=== PATIENT | female | born 2000 | race Caucasian/White ===

== ENCOUNTER 2021-07-11 17:01 | Emergency (ER) | payer OTHER, SELFPAY ==
[2021-07-11 17:11] LABS: Urine Blood Negative (Negative); Urine Glucose Negative (Negative); Urine Protein Negative (Negative); Urine Specific Gravity 1.025 (1.005-1.030)
[2021-07-11 17:29] LABS: Urine Specific Gravity/Preg 1.025 (1.005-1.030)
[2021-07-11 17:31] LABS: Absolute Lymphocytes (CBC) 3.2 K/uL (0.7-4.9); Hematocrit 43.5 % (36.0-45.0); Lymphocytes % 28.8 % (15.3-44.8); MPV 8.1 fL (7.6-11.3); RBC Red Blood Cell Count 4.75 M/uL (3.86-4.86)
[2021-07-11 17:32] LABS: Protime INR 0.99
[2021-07-11 17:47] LABS: BUN Blood Urea Nitrogen 15 mg/dL (7-18); Bicarbonate 27 mmol/L (21-32); Glucose Level 88 mg/dL (74-106); Potassium 3.2 mmol/L (3.5-5.1); Sodium Level 141 mmol/L (136-145)
[2021-07-11] MEDS ORDERED: FENTANYL CITR 100 MCG/2 ML ONE (18:16)
[2021-07-11] MEDS ORDERED: CYCLOBENZAPRINE 10 MG TAB ONE (19:22)
[2021-07-11] MEDS ORDERED: KETOROLAC 30 MG/ML INJ ONE (19:22)
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
[2021-07-11 22:56] VITALS: BP 128/76; TEMP 97.4; O2SAT 100
== END 2021-07-11 20:46 | disposition home or self-care (01) ==
LOC: ER 17:01
DX: M54.2 Cervicalgia (principal); V43.62XA Car passenger injured in collision with other type car in traffic accident, initial encounter; Y93.89 Activity, other specified; Y92.410 Unspecified street and highway as the place of occurrence of the external cause; Z88.6 Allergy status to analgesic agent; F17.210 Nicotine dependence, cigarettes, uncomplicated
CPT/HCPCS: 85025; 80048; 36415; 86900; 86850; 81025; 85610; 82565; 86901; 81003; 70450; 72125; 71260; 74177; 99283; Q9967; J3010; 93005

== ENCOUNTER 2021-08-16 12:25 | Emergency (ER) | payer SELFPAY ==
--- OUTSIDE RECORDS SUMMARY | 2021-08-16 12:30 | XMS REPORT | Continuity of Care Document ---
:2000 Author Organization [facility] t Address [address] [place] [address] Care Team Providers Name Role Phone Rylie Gil Attending Clinician Rylie MCKEON Attending Clinician Unavailable Saundra KNIGHT Attending Clinician SAUNDRA Attending Clinician Unavailable KNOW Admitting Clinician Unavailable Payers Payer Name Policy Type Policy Number Effective Date Expiration Date [facility] P [id number] Problems Condition Condition Condition Status Onset Resolution Last Treating Co mments Source Name Details Category Date Date Treatment Clinician Date No known No known Disease Unive rs active active ity of problems problems [facility] Allergies, Adverse Reactions, Alerts Allergy Allergy Status Severity Reaction(s) Onset Inactive Treating Comm ents Source Name Type Date Date Clinician Morphine Propensi Active Nausea 2019-06 Univer s ty to and/or 2-14 ity of adverse Vomiting 00:00: [place] reaction 00 Medical s Branch MORPHINE DRUG Active N/V 2019-06 Univers INGREDI 2-14 ity of 00:00: [place] 00 [facility] succinyl DA Active SV [facility] choline 5-16 [place] 00:00: d 00 [facility] succinyl DA Active SV UNKNOWN [facility] choline 5-16 [place] 00:00: d 00 [facility] Social History Social Habit Start Date Stop Date Quantity Comments Source Exposure to Not sure [facility] SARS-CoV-2 (event) Medica l Branch Sex Assigned At [birth year] [facility] 00:00:00 00:00:00 Medical Branch Smoking Status Start Date Stop Date Source Unknown if ever smoked [facility] Medications Ordered Filled Start Stop Current Ordering Indication Dosage Frequency Signature Comments Components Source Medication Medication Date Date Medication? Clinician (SIG) Name Name ondansetron No 4mg 4 mg, Slow Univers (ZOFRAN 6-05 02- IV Push, ity of (PF)) 15:30: 14:53 ONCE, 1 [place] injection 4 00 :00 dose, Fri Med ical mg 12/05/20 at Branch 1030, ANGEL ondansetron Yes [id number] 4mg Take 1 U nivers 4 mg 6- tablet by ity of disintegrat 00:00: mouth [place] ing tablet 00 every 8 Medica l (eight) Branch hours as needed for Nausea and Vomiting (N/V). iohexol 2019-06 2020- No 100mL 100 mL, Unive rs (OMNIPAQUE 2-14 -14 Intravenou it y of 350 17:00: 16:50 s, ONCE, 1 [place] BULK-100 00 :00 dose, Mon Medica l mL) 06/09/20 Branch injection at 1100, 100 mL Routine No known No Univers medications [facility] Vital Signs Vital Name Observation Time Observation Value Comments Source Systolic blood 2020-12-05 17:20:00 114 mm[Hg] [facility] Diastolic blood 2020-12-05 17:20:00 62 mm[Hg] Unive rs[facility] Heart rate 2020-12-05 17:20:00 78 /min [facility] Respiratory rate 2020-12-05 17:20:00 18 /min [facility] Oxygen saturation in 2020-12-05 17:20:00 98 /min [facility] Arterial blood by [facility] Pulse oximetry Branch Body temperature 2020-12-05 13:59:00 36.72 Linda [facility] Body height 2020-12-05 13:59:00 160 cm Universi ty of [facility] Body weight 2020-12-05 13:59:00 65.772 kg Universi ty [facility] BMI 2020-12-05 13:59:00 25.69 kg/m2 Universi ty [facility] Diastolic blood 2020-06-09 18:17:12 59 mm[Hg] [facility] Heart rate 2020-06-09 18:17:12 73 /min Universi ty [facility] Body temperature 2020-06-09 18:17:12 36.89 [facility] Respiratory rate 2020-06-09 18:17:12 16 /min [facility] Oxygen saturation in 2020-06-09 18:17:12 98 /min [facility] Arterial blood by [facility] Pulse oximetry Branch Systolic blood 2020-06-09 18:17:12 117 mm[Hg] Univer sit of pressure [facility] Body height 2020-06-09 15:20:[address] [facility] [place] Body weight 2020-06-09 15:20:00 65.318 kg Universi [facility] BMI 2020-06-09 15:20:00 24.72 kg/m2 [facility] Procedures Procedure Date / Time Performed Performing Clinician Rigoberto e CT ABDOMEN PELVIS WO 2020-12-05 14:50:57 Iris Mckeon Uni [facility] CONTRAST [facility] COVID-19 (ID NOW RAPID 2020-12-05 14:50:00 [facility] Medical Branch LIPASE 2020-12-05 14:33:00 Iris Mckeon [facility] COMP. METABOLIC PANEL 2020-12-05 14:33:00 [id number] Medical Branch CBC WITH DIFF 2020-12-05 14:33:00 Iris Mckeon [facility] URINALYSIS 2020-12-05 14:33:00 Iris Mckeon [facility] POCT TEST 2020-12-05 14:25:00 Iris Mckeon [facility] CONSENT/REFUSAL FOR 2020-12-05 13:55:26 Doctor Unassigned, No Un [facility] DIAGNOSIS AND Name Medical Branch TREATMENT CT ABDOMEN PELVIS W 2020-06-09 16:58:03 Keke Armas [facility] CONTRAST [facility] US OVARY TORSION 2020-06-09 16:36:54 Saundra [facility] LIPASE 2020-06-09 15:51:00 Saundra [facility] TEST, SERUM 2020-06-09 [facility]:51[facility] 2020-06-09 15:51:00 Keke Armas [facility] ([id number]) [facility] (ALB,T.PRO,BILI T,BU/BC,ALT,AST,ALK PHOS) BASIC METABOLIC PANEL 2020-06-09 15:51:00 Saundra [facility] (NA, K, CL, CO2, Medical Branch GLUCOSE, BUN, CREATININE, CA) CBC WITH DIFF 2020-06-09 15:51:00 Saundra [facility] URINALYSIS 2020-06-09 15:51:00 Saundra [facility] Encounters Start End Encounter Admission Attending Care Care Encounter Source Date/Time Date/Time Type Type Clinicians Facility Department ID 2021-04-09 Outpatient [facility] [id number] [facility] 16:46:14 [id number] [facility] 2020-04-25 Inpatient HCAMN KATELYN [id number] [facility] 18:12:00 [id number] [facility] 2019-07-03 Inpatient HCAKW CERS [id number] [facility] 15:26:00 [id number] [facility] 2020-12-05 2020-12-05 Emergency BIN Mckeon [id number] [facility] 09:01:00 12:21:00 [facility] [id number] ity of Gerda [id number] [facility] ER [id number] [address] ([facility]) 2020-12-05 2020-12-05 Emergency X [facility] ERT [id number] Univers 09:01:00 12:21:00 IRIS juan [facility] 2020-06-09 2020-06-09 Emergency BIN Armas [id number] Univers 09:23:00 12:18:00 [facility] [id number] it y of Clear [id number] Angelica Wynne [id number] [address] ([facility]) 2020-06-09 2020-06-09 Emergency X SAUNDR[facility] ERT [id number] Univers 09:23:00 09:23:00 KEKE juan [facility] Results Test Description Test Time Test Results Result Source Comments Comments CT ABDOMEN 2020-11-25 1. No acute findings Un iversity of PELVIS WO 1 of the abdomen and [place] [facility] CONTRAST 16:13:39 pelvis. Electronically Br anch signed by Wallace Jones at 12/05/2020 11:13 AMIndication: Nausea/vomiting Abdominal pain, acute, nonlocalized ? Comparison: None RL: [id number] ORDERING PHYSICIAN: ?IRIS SOLORIO TECHNIQUE: A multislice helical scanner was utilized to obtain serial axialslices through the abdomen and pelvis from the lung bases to below theischial tuberosities without intravenous contrast. Automated dose loweringtechniques and/or adjustment according to patient size were utilized forthis exam. FINDINGS:Evaluation of vasculature, solid and hollow intra-abdominal andpelvic viscera is suboptimal without IV contrast. ? Bilateral lung bases are clear. The unenhanced liver, spleen, gallbladder, and pancreas, are unremarkable. The kidneys demonstrate no evidence of hydronephrosis. The small and large bowel are normal in caliber. There is no evidence forbowel obstruction. ?The appendix appears unremarkable. The abdominal and pelvic vasculature appear unremarkable. No AAA. The urinary bladder appears unremarkable. The uterus is anteverted. Thereare right ovarian follicles. Osseous structures appear intact. [facility], Radiant Results Inft User - 12/05/2020 11:14 AM CDT Indication: Nausea/vomiting Abdominal pain, acute, nonlocalized Comparison: NoneRL: [id number] PHYSICIAN: IRIS MCKEON TECHNIQUE: A multislice helical scanner was utilized to obtain serial axialslices through the abdomen and pelvis from the lung bases to below theischial tuberosities without intravenous contrast. Automated dose loweringtechniques and/or adjustment according to patient size were utilized forthis exam.FINDINGS:Evaluati on of vasculature, solid and hollow intra-abdominal andpelvic viscera is suboptimal without IV contrast. Bilateral lung bases are clear.The unenhanced liver, spleen, gallbladder, and pancreas, are unremarkable.The kidneys demonstrate no evidence of hydronephrosis.The small and large bowel are normal in caliber. There is no evidence forbowel obstruction. The appendix appears unremarkable.The abdominal and pelvic vasculature appear unremarkable. No AAA.The urinary bladder appears unremarkable. The uterus is anteverted. Thereare right ovarian follicles.Osseous structures appear intact.IMPRESSION1. No acute findings of the abdomen and pelvis. D-19 (ID NOW RAPID TESTING) 2020-12-05 15:28:52 Test Item Value Reference Range Interpretation Comme nts SARS-CoV-2 Rapid ID NOW (test code Not Detected Not Detected = 99573-3) AIDE (test code = AIDE) ID NOW COVID-19 Assay is an isothermal nucleic acid amplification test intended for the qualitative detection of nucleic acid from SARS-CoV-2 viral RNA in nasopharyngeal (CARPENTER PACKING) specimens. It is used under Emergency Use Authorization (EUA) by FDA. The limit of detection (LOD) of the assay is 125 Genome Equivalents/mL. A positive result is indicative of the presence of SARS-CoV-2 RNA. ?Clinical correlation with patient history and other diagnostic information is necessary to determine patient infection status. A negative (Not Detected) result does not preclude SARS-CoV-2 infection. In patients with clinical symptoms and other tests that are consistent with SARS-CoV-2 infection, negative results should be treated as presumptive negative and a new specimen should be tested with alternative PCR molecular test. Invalid: Please collect a new specimen for repeat patient testing if clinically indicated. Lab Interpretation (test code = Normal 35089-5) [facility]. METABOLIC PANEL (45628)2020-12-05 15:14:30 Test Item Value Reference Range Interpretation Comments NA (test code = 141 mmol/L 135-145 5036499544) K (test code = 4.3 mmol/L 3.5-5.0 9744471944) CL (test code = 105 mmol/L 98-108 8246102024) CO2 TOTAL (test code 27 mmol/L 23-31 = 2071951032) AGAP (test code = 2-16 4929601002) BUN (test code = 14 mg/dL 7-23 3694408969) GLUCOSE (test code = 83 mg/dL 70-110 8668691968) CREATININE (test code 0.54 mg/dL 0.50-1.04 = 3816367765) TOTAL BILI (test code 0.5 mg/dL 0.1-1.1 = 0654562020) CALCIUM (test code = 9.7 mg/dL 8.6-10.6 9166109068) T PROTEIN (test code 7.5 g/dL 6.3-8.2 = 2035730799) ALBUMIN (test code = 4.7 g/dL 3.5-5.0 3650306991) ALK PHOS (test code = 79 U/L 34-122 0759387074) ALTv (test code = 15 U/L 5-35 1742-6) AST(SGOT) (test code 39 U/L 13-40 = 9602774238) eGFR (test code = mL/min/1.73m2 5377375599) AIDE (test code = AIDE) Association of Glomerular Filtration Rate (GFR) and Staging of Kidney Disease* + + +- +| GFR (mL/min/1.73 m2) ?| With Kidney Damage ?| ?Without Kidney Damage+ ------+ ----+ ------+| ?>90 ?| ?Stage one ?| ? Normal ?+ -+ + -+| ?60-89 ?| ?Stage two ?| ? Decreased GFR ? + + +- +| ?30-59 ?| ?Stage three ?| ? Stage three ? + + +- +| ?15-29 ?| ?Stage four ? | ? Stage four ?+ -+ + -+| ?<15 (or dialysis) ? ?| ?Stage five ? | ? Stage five ?+ -+ + -+ *Each stage assumes the associated GFR level has been in effect for at least three months. ?Stages 1 to 5, with or without kidney disease, indicate chronic kidney disease. Notes: Determination of stages one and two (with eGFR >59mL/min/1.73 m2) requires estimation of kidney damage for at least three months as defined by structural or functional abnormalities of the kidney, manifested by either:Pathological abnormalities or Markers of kidney damage (including abnormalities in the composition of the blood or urine or abnormalities in imaging tests). [facility] [id number] 15:14:30 Test Item Value Reference Range Interpretation Comments LIPASE (test code = 4337216836) 64 U/L 0-220 Lab Interpretation (test code = Normal 25794-1) [facility] 14:57:51 Test Item Value Reference Range Interpretation Comments APPEARANCE (test code = Hazy Clear A 4250533958) COLOR (test code = Yellow Yellow 2414796225) PH (test code = 4.8-8.0 3887453437) SP GRAVITY (test code = 1.003-1.030 2787138005) GLU U QUAL (test code = Normal Normal 0890300729) BLOOD (test code = Negative Negative 0600862894) KETONES (test code = Negative Negative 0036700655) PROTEIN (test code = Negative Negative 2887-8) UROBILIN (test code = Normal Normal 3234173174) BILIRUBIN (test code = Negative Negative 0451024110) NITRITE (test code = Negative Negative 5985883399) LEUK CIRA (test code = Negative Negative 7977097550) RBC/HPF (test code = See_Comment [Autom ated message] 4208366757) The system Next audience generated this result transmitted ref erence range: 0 - 3 HP F. The reference range was not used to int erpret this result as normal/abnormal . WBC/HPF (test code = See_Comment [Autom ated message] 0718037342) The system Next [employer] generated this result transmitted ref erence range: 0 - 5 HP F. The reference range was not used to int erpret this result as normal/abnormal . BACTERIA (test code = Few Negative A 1526071733) MUCOUS (test code = Slight Negative LPF A 6542311133) SQ EPITH (test code = See_Comment H [Auto mated message] 2373862259) The system whic [employer] generated this result transmitted ref erence range: <=2 HPF. The reference range was not used to int erpret this result as normal/abnormal . Lab Interpretation (test Abnormal code = 91190-0) [facility] with [id number] 14:47:05 Test Item Value Reference Range Interpretation Comments WBC (test code = See_Comment [Automated 6690-2) message] The sy stem which generated this result transmitted reference range : 4.30 - 11.10 10*3/?L. The reference range was not used to interpret this result as normal/abnormal . RBC (test code = See_Comment [Automated 789-8) message] The sy stem which generated this result transmitted reference range : 3.93 - 5.25 10*6/?L. The reference range was not used to interpret this result as normal/abnormal . HGB (test code = 13.8 g/dL 11.6-15.0 718-7) HCT (test code = 40.9 % 35.7-45.2 4544-3) MCV (test code = 91.7 fL 80.6-95.5 787-2) MCH (test code = 30.9 pg 25.9-32.8 785-6) MCHC (test code = 33.7 g/dL 31.6-35.1 786-4) RDW-SD (test code = 42.3 fL 39.0-49.9 35089-1) RDW-CV (test code = 12.5 % 12.0-15.5 788-0) PLT (test code = See_Comment [Automated 777-3) message] The sy stem which generated this result transmitted reference range : 166 - 358 10*3/ ?L. The reference r itz was not used to interpret this result as normal/abnormal . MPV (test code = 9.5 fL 9.5-12.9 99421-0) NRBC/100 WBC (test See_Comment [Automat ed code = 3176579524) message] The system which generated this result transmitted reference range : 0.0 - 10.0 /100 WBCs. The refer ence range was not u sed to interpret th is result as normal/abnormal . NRBC x10^3 (test code <0.01 See_Comment [Auto mated = 3019074832) message] The s ystem which generated this result transmitted reference range : 10*3/?L. The reference range was not used to interpret this result as normal/abnormal . GRAN MAT (NEUT) % 52.8 % (test code = 770-8) IMM GRAN % (test code 0.30 % = 0725683248) LYMPH % (test code = 36.4 % 736-9) MONO % (test code = 7.3 % 5905-5) EOS % (test code = 2.8 % 713-8) BASO % (test code = 0.4 % 706-2) GRAN MAT x10^3(ANC) 4.87 10*3/uL 1.88-7.09 (test code = 9732523458) IMM GRAN x10^3 (test 0.03 10*3/uL 0.00-0.06 code = 1579441928) LYMPH x10^3 (test code 3.36 10*3/uL 1.32-3.29 H = 731-0) MONO x10^3 (test code 0.67 10*3/uL 0.33-0.92 = 742-7) EOS x10^3 (test code = 0.26 10*3/uL 0.03-0.39 711-2) BASO x10^3 (test code 0.04 10*3/uL 0.01-0.07 = 704-7) Lab Interpretation Abnormal (test code = 74608-6) [facility] [id number] 14:25:00 Test Item Value Reference Range Interpretation Comments POCT PREG (test code = 1605) negative On board controls acceptable with present C Line (test code = 3574) POCT PREG LOT # (test code = 3575) POCT PREG TEST DATE (test 2021 code = 3576) Lab Interpretation (test code = Normal 54752-3) [facility] ABDOMEN PELVIS W [id number] 17:08:251. Nonspecific mesenteric lymph nodes may represent mesenteric adenitis. Noother significant abnormality of the abdomen or pelvis is seen. EXAM: CT scan of the abdomen and pelvis with contrast HISTORY: Abd pain, acute, generalized TECHNIQUE:3.75 mm axial images are obtained from diaphragmatic domes tosymphysis pubis following intravenous administration of 100 ml of Tizcegcri199. Sagittal and coronalreformation is carried out. COMPARISON: Ultrasound of the pelvis from the same date FINDINGS: The lung bases are clear. No pleural effusion is present. Heart size isnormal. Liver, gallbladder, pancreas, spleen, adrenal glands and kidneys arenormal. Abdominal aorta is normal in size. No free fluid or free air is seen in theabdomen. No enlarged lymph nodes are seen in the retroperitoneum. A fewnonspecific lymph nodes are seen at the root of the mesentery. Bowel loops are normal in caliber. No evidenceof bowel obstruction. Normalvolume stool is seen in the colon. Appendix is not visualized, howeverthe re is no indirect evidence of appendicitis. The uterus and the urinary bladder are normal. No free fluid is seen in thepelvis. No enlarged pelvic or inguinal lymph nodes are seen. No suspicious abnormality of the bones is seen. Pseudoarticulation theright L5 transverse processes noted with the sacrum.[facility], Radiant Results Inft User - 06/09/2020 11:09 AM CSTEXAM: CT scan of the abdomen and pelvis with contrastHISTORY: Abd pain, acute, generalizedTECHNIQUE:3.75 mm axial images are obtained from diaphragmatic domes tosymphysis pubis following intravenous administration of 100 ml of Cqrwwqhaz484. Sagittal and coronal reformation is carried out.COMPARISON: Ultrasound of the pelvis from the same dateFINDINGS:The lung bases are clear. No pleural effusion is present. Heart size isnormal.Liver, gallbladder, pancreas, spleen, adrenal glands and kidneys arenormal.Abdominal aorta is normal in size. No freefluid or free air is seen in theabdomen. No enlarged lymph nodes are seen in the retroperitoneum. A f ewnonspecific lymph nodes are seen at the root of the mesentery.Bowel loops are normal in caliber. No evidence of bowel obstruction. Normalvolume stool is seen in the colon. Appendix is not visualized,howeverthere is no indirect evidence of appendicitis.The uterus and the urinary bladder are normal. No free fluid is seen in thepelvis. No enlarged pelvic or inguinal lymph nodes are seen.No suspiciousabnormality of the bones is seen. Pseudoarticulation theright L5 transverse processes noted with thesacrum.IMPRESSION1. Nonspecific mesenteric lymph nodes may represent mesenteric adenitis. Noother significant abnormality of the abdomen or pelvis is seen.[facility] OVARY [id number] 16:45:41PELVIC ULTRASOUND FOR OVARIAN TORSION HISTORY: ovarian torsion vs cyst; TECHNIQUE: Transabdominal and transvaginal sonographic evaluation of theuterus and adnexa is performed. FINDINGS: The uterus is normal in size, shape and echotexture. The uterusmeasures 7.1 x 3.0 x 3.9 cm. ?No focal lesions are present within theuterus. The endometrial stripe is normal and measures 11 mm. Both ovaries are normal. The right ovary measure 3.7 x 2.4 x 2.6 cm and theleft ovary measures 3.1 x 1.9 x 1.7 cm. Normal blood flow is seen withinboth ovaries. A small follicle is present in the left ovary measuringapproximately 1.8 cm. No free fluid is seen within the cul-de-sac. CONCLUSION:1. Normal ultrasound of the pelvis. No evidence of ovarian torsion at thetime of examination [facility] Results Inft User - 06/09/2020 10:46 AM CSTPELVIC ULTRASOUND FOR OVARIAN TORSIONHISTORY: ovarian torsion vs cyst;TECHNIQUE: Transabdominal and transvaginal sonographic evaluation of theuterus and adnexa is performed.FINDINGS: The uterus is normal in size, shape and echotexture. The uterusmeasures 7.1 x 3.0 x 3.9 cm. No focal lesions are present within theuterus. The endometrial stripe is normal and measures 11 mm. Both ovaries are normal. The right ovary measure 3.7 x 2.4 x 2.6 cm and theleft ovary measures 3.1 x 1.9 x 1.7 cm. Normal blood flow is seen withinboth ovaries. A small follicle is present in the left ovary measuringapproximately 1.8 cm.No free fluid is seen within the cul-de-sac.CONCLUSION:1. Normal ultrasound of the pelvis. No evidence of ovarian torsion at thetime of examinationCH[facility]ST[facility]evillePregnancy Test, [id number] 16:14:00 Test Item Value Reference Range Interpretation Comments PREG SERUM (test code Negative = 5410440259) AIDE (test code = AIDE) Less than 10 IU/L. ?If low titer or ectopic is suspected, resubmit specimen in 48-72 hours. [facility] Metabolic Panel (NA, K, CL, CO2, GLUCOSE, BUN, CREATININE, CA)2020-06-09 16:13:00 Test Item Value Reference Range Interpretation Comments NA (test code = 140 mmol/L 135-145 3904869238) K (test code = 4.4 mmol/L 3.5-5 7708442799) CL (test code = 101 mmol/L 98-108 1722638635) CO2 TOTAL (test code = 26 mmol/L 23-31 6678529395) AGAP (test code = 2-16 3247215477) BUN (test code = 11 mg/dL 7-23 5464867206) GLUCOSE (test code = 92 mg/dL 70-110 2318910009) CREATININE (test code 0.57 mg/dL 0.5-1.04 = 9509929820) CALCIUM (test code = 10.4 mg/dL 8.6-10.6 4092790048) eGFR Calculation mL/min/1.73m2 (Non-) (test code = 3515225784) eGFR Calculation mL/min/1.73m2 () (test code = 3591558151) AIDE (test code = AIDE) Association of Glomerular Filtration Rate (GFR) and Staging of Kidney Disease* + -+ + ---+| GFR (mL/min/1.73 m2) ?| With Kidney Damage ?| ?Without Kidney Damage+ -------+ ------+ ---------+| ?>90 ?| ?Stage one ?| ? Normal ?+ --+ -+ ----+| ?60-89 ?| ?Stage two ?| ? Decreased GFR ? + -+ + ---+| ?30-59 ?| ?Stage three ?| ? Stage three ? + -+ + ---+| ?15-29 ?| ?Stage four ? | ? Stage four ?+ --+ -+ ----+| ?<15 (or dialysis) ? ?| ?Stage five ? | ? Stage five ?+ --+ -+ ----+ *Each stage assumes the associated GFR level has been in effect for at least three months. ?Stages 1 to 5, with or without kidney disease, indicate chronic kidney disease. Notes: Determination of stages one and two (with eGFR >59mL/min/1.73 m2) requires estimation of kidney damage for at least three months as defined by structural or functional abnormalities of the kidney, manifested by either:Pathological abnormalities or Markers of kidney damage (including abnormalities in the composition of the blood or urine or abnormalities in imaging tests). [facility] (ALB, T.PRO, BILI T, BU/BC, ALT, AST, ALK PHOS)2020-06-09 16:13:00 Test Item Value Reference Range Interpretation Comments TOTAL BILI (test code = 2426532166) 0.5 mg/dL 0.1-1.1 BILI UNCON (test code = 8827297835) 0.2 mg/dL 0.1-1.1 BILI CONJ (test code = 9830585065) 0.0 mg/dL 0-0.3 T PROTEIN (test code = 4872012441) 7.8 g/dL 6.3-8.2 ALBUMIN (test code = 3040960204) 4.8 g/dL 3.5-5 ALK PHOS (test code = 8888836549) 95 U/L 34-122 ALTv (test code = 1742-6) 29 U/L 5-35 AST(SGOT) (test code = 0612707069) 31 U/L 13-40 Lab Interpretation (test code = Normal 55194-0) [facility] [id number] 16:13:00 Test Item Value Reference Range Interpretation Comments LIPASE (test code = 0304909476) 83 U/L 0-220 Lab Interpretation (test code = Normal 30807-5) [facility]14 16:04:00 Test Item Value Reference Range Interpretation Comments APPEARANCE (test code = Clear Clear 3749162933) COLOR (test code = Yellow Yellow 6104978633) PH (test code = 4.8-8.0 0611181002) SP GRAVITY (test code = 1.003-1.030 3432453309) GLU U QUAL (test code = Normal Normal 8839414961) BLOOD (test code = Negative Negative 2443483020) KETONES (test code = Negative Negative 4652899212) PROTEIN (test code = Negative Negative 2887-8) UROBILIN (test code = Normal Normal 8894916440) BILIRUBIN (test code = Negative Negative 7362913979) NITRITE (test code = Negative Negative 8191514424) LEUK CIRA (test code = Negative Negative 7318207480) RBC/HPF (test code = See_Comment [Autom ated message] 0154925761) The system Next audience generated this result transmitted ref erence range: 0 - 3 HP F. The reference range was not used to int erpret this result as normal/abnormal . WBC/HPF (test code = See_Comment [Autom ated message] 1644089518) The system Next audience generated this result transmitted ref erence range: 0 - 5 HP F. The reference range was not used to int erpret this result as normal/abnormal . BACTERIA (test code = Few Negative A 2469142115) SQ EPITH (test code = See_Comment H [Auto mated message] 9296282072) The system Next audience generated this result transmitted ref erence range: <=2 HPF. The reference range was not used to int erpret this result as normal/abnormal . Lab Interpretation (test Abnormal code = 82793-3) [facility] with [id number] 16:01:00 Test Item Value Reference Range Interpretation Comments WBC (test code = See_Comment [Automated 1790-2) message] The sy stem which generated this result transmitted reference range : 4.30 - 11.10 10*3/?L. The reference range was not used to interpret this result as normal/abnormal . RBC (test code = See_Comment [Automated 789-8) message] The sy stem which generated this result transmitted reference range : 3.93 - 5.25 10*6/?L. The reference range was not used to interpret this result as normal/abnormal . HGB (test code = 14.7 g/dL 11.6-15 718-7) HCT (test code = 43.6 % 35.7-45.2 4544-3) MCV (test code = 91.0 fL 80.6-95.5 787-2) MCH (test code = 30.7 pg 25.9-32.8 785-6) MCHC (test code = 33.7 g/dL 31.6-35.1 786-4) RDW-SD (test code = 42.7 fL 39-49.9 80854-7) RDW-CV (test code = 12.8 % 12-15.5 788-0) PLT (test code = See_Comment [Automated 777-3) message] The sy stem which generated this result transmitted reference range : 166 - 358 10*3/ ?L. The reference r itz was not used to interpret this result as normal/abnormal . MPV (test code = 9.4 fL 9.5-12.9 L 63746-8) NRBC/100 WBC (test See_Comment [Automat ed code = 8076366417) message] The system which generated this result transmitted reference range : 0.0 - 10.0 /100 WBCs. The refer ence range was not u sed to interpret th is result as normal/abnormal . NRBC x10^3 (test code <0.01 See_Comment [Auto mated = 7907863598) message] The s ystem which generated this result transmitted reference range : 10*3/?L. The reference range was not used to interpret this result as normal/abnormal . GRAN MAT (NEUT) % 57.1 % (test code = 770-8) IMM GRAN % (test code 0.20 % = 5570186184) LYMPH % (test code = 34.2 % 736-9) MONO % (test code = 6.5 % 5905-5) EOS % (test code = 1.6 % 713-8) BASO % (test code = 0.4 % 706-2) GRAN MAT x10^3(ANC) 6.33 10*3/uL 1.88-7.09 (test code = 9503383202) IMM GRAN x10^3 (test <0.03 0-0.06 code = 4567639496) LYMPH x10^3 (test code 3.79 10*3/uL 1.32-3.29 H = 731-0) MONO x10^3 (test code 0.72 10*3/uL 0.33-0.92 = 742-7) EOS x10^3 (test code = 0.18 10*3/uL 0.03-0.39 711-2) BASO x10^3 (test code 0.04 10*3/uL 0.01-0.07 = 704-7) Lab Interpretation Abnormal (test code = 90683-7) [facility] METABOLIC [id number] 19:33:00 Test Item Value Reference Range Interpretation Comments SODIUM (test code = NA) 138 mmol/l 134.0-147.0 N POTASSIUM (test code = K) 3.8 mmol/L 3.6-5.2 N CHLORIDE (test code = CL) 99 mmol/l 98.0-107.0 N CARBON DIOXIDE (test code = CO2) 27.4 mmol/l 21.0-33.0 N ANION GAP (test code = GAP) 15.4 0-20 N GLUCOSE (test code = GLU) 88 mg/dl 70.0-110.0 N BLOOD UREA NITROGEN (test code = 11 mg/dl 7.0-18.0 N BUN) CREATININE (test code = CREAT) 0.80 mg/dL 0.60-1.30 N GFR NON BLACK (test code = 99 mL/min 110-120 L GFRNONBLACK) GFR BLACK (test code = GFRBLACK) 120 mL/min 133-145 L CALCIUM (test code = CA) 9.6 mg/dl 8.0-10.5 N Specimen comments: Clean CatchHEPATIC FUNCTION PANEL [id number] 19:33:00 Test Item Value Reference Range Interpretation Comments TOTAL PROTEIN (test code = PROT) 8.8 GM/DL 6.0-8.1 H ALBUMIN (test code = ALB) 4.1 gm/dL 3.2-4.7 N BILIRUBIN TOTAL (test code = 0.8 mg/dl 0.0-1.0 N BILT) BILIRUBIN DIRECT (test code = 0.2 mg/dl 0.0-0.3 N BILD) SGOT/AST (test code = AST) 24 Units/L 15.0-37.0 N SGPT/ALT (test code = ALT) 27 Units/L 12.0-78.0 N ALKALINE PHOSPHATASE TOTAL (test 105 Units/L 50.0-136.0 N code = ALKP) Specimen comments: Clean CatchHCG SERUM [id number] 19:33:00 Test Item Value Reference Range Interpretation Comments HCG SERUM QUAL (test code = HCGQL) NEGATIVE NEGATIVE Specimen comments: Clean CatchBASIC METABOLIC [id number] 19:26:00 Test Item Value Reference Range Interpretation Comments SODIUM (test code = NA) 138 mmol/l 134.0-147.0 N POTASSIUM (test code = K) 3.8 mmol/L 3.6-5.2 N CHLORIDE (test code = CL) 99 mmol/l 98.0-107.0 N CARBON DIOXIDE (test code = CO2) 27.4 mmol/l 21.0-33.0 N ANION GAP (test code = GAP) 15.4 0-20 N GLUCOSE (test code = GLU) mg/dl 70.0-110.0 BLOOD UREA NITROGEN (test code = mg/dl 7.0-18.0 BUN) CREATININE (test code = CREAT) mg/dL 0.60-1.30 GFR NON BLACK (test code = mL/min 110-120 GFRNONBLACK) GFR BLACK (test code = GFRBLACK) mL/min 133-145 CALCIUM (test code = CA) mg/dl 8.0-10.5 Specimen comments: Clean CatchHEPATIC FUNCTION PANEL [id number] 19:26:00 Test Item Value Reference Range Interpretation Comments TOTAL PROTEIN (test code = PROT) gm/dL 6.4-8.2 ALBUMIN (test code = ALB) gm/dl 3.2-4.7 BILIRUBIN TOTAL (test code = BILT) mg/dl 0.0-1.0 BILIRUBIN DIRECT (test code = BILD) mg/dl 0.0-0.3 SGOT/AST (test code = AST) Units/L 15.0-37.0 SGPT/ALT (test code = ALT) Units/L 12.0-78.0 ALKALINE PHOSPHATASE TOTAL (test Units/L 50.0-136.0 code = ALKP) Specimen comments: Clean CatchHCG SERUM [id number] 19:26:00 Test Item Value Reference Range Interpretation Comments HCG SERUM QUAL (test code = HCGQL) NEGATIVE NEGATIVE Specimen comments: Clean CatchPROTHROMBIN [id number] 19:21:00 Test Item Value Reference Range Interpretation Comments PROTHROMBIN TIME 15.1 SECONDS 9.9-12.8 H PATIENT (test code = PTP) INTERNATIONAL NORMAL 1.3 0.89-1.14 H THE INR IS TO BE USED RATIO (test code = ONLY FOR MONITORING INR) ORAL ANTICOAGULANTTH ERAPY. THE FOLLOWING A RE SUGGESTED RANGE S FROM [facility]:NNEKA CATION INR VALUEPROPHYLAXI S OF VENOUS THROMBOS IS (ORTHOPEDIC CELESTE HUGO) 2.0 - 3.0PROP HYLAXIS OF VENOUS THROM BOSIS (OTHER THAN HIG H-RISK SURGERY) 2.0 - 3.0TRE ATMENT OF DEEP VEIN THROMBOSIS OR PULMONARY EMBOL ISM 2.0 - 3.0PREV ENTION OF SYSTEMIC EMB OLISM TISSUE HEART VA LVES 2.0 - 3.0 AC SHABBIR MYOCARDIAL INFA RCTION (TO PREVENT SYSTEMIC EMBOLI SM) 2.0 - 3.0 ACUTE MYOCARDIA L INFARCTION (TO PREVENT RECURRE NT INFARCT) 2.5 - 3.0 VALV ULAR HEART DISEASE 2.0 - 3.0 ATRIAL FIBRILATION 2.0 - 3.0BILEAFLET MECHANICAL VALV E IN AORTIC POSITION 2.0 - 3.0MECHAN ICAL PROSTHETIC VALV ES (HIGH RISK) 2.5 - 3.5PRESEN CE OF LUPUS ANTICOAGU LANT OR ANTIPHOSPHOLIP ID ANTIBODIES 2.5 - 3 .5 Specimen comments: Clean CatchIs patient on anticoagulants? NBASIC METABOLIC [id number] 19:19:00 Test Item Value Reference Range Interpretation Comments SODIUM (test code = NA) mmol/l 134.0-147.0 POTASSIUM (test code = K) mmol/L 3.6-5.2 CHLORIDE (test code = CL) mmol/l 98.0-107.0 CARBON DIOXIDE (test code = CO2) mmol/l 21.0-33.0 ANION GAP (test code = GAP) 0-20 GLUCOSE (test code = GLU) mg/dl 70.0-110.0 BLOOD UREA NITROGEN (test code = BUN) mg/dl 7.0-18.0 CREATININE (test code = CREAT) mg/dL 0.60-1.30 GFR NON BLACK (test code = mL/min 110-120 GFRNONBLACK) GFR BLACK (test code = GFRBLACK) mL/min 133-145 CALCIUM (test code = CA) mg/dl 8.0-10.5 Specimen comments: Clean CatchHEPATIC FUNCTION PANEL [id number] 19:19:00 Test Item Value Reference Range Interpretation Comments TOTAL PROTEIN (test code = PROT) gm/dL 6.4-8.2 ALBUMIN (test code = ALB) gm/dl 3.2-4.7 BILIRUBIN TOTAL (test code = BILT) mg/dl 0.0-1.0 BILIRUBIN DIRECT (test code = BILD) mg/dl 0.0-0.3 SGOT/AST (test code = AST) Units/L 15.0-37.0 SGPT/ALT (test code = ALT) Units/L 12.0-78.0 ALKALINE PHOSPHATASE TOTAL (test Units/L 50.0-136.0 code = ALKP) Specimen comments: Clean CatchHCG SERUM [id number] 19:19:00 Test Item Value Reference Range Interpretation Comments HCG SERUM QUAL (test code = HCGQL) NEGATIVE NEGATIVE Specimen comments: Clean CatchCBC W/AUTO [id number] 19:06:00 Test Item Value Reference Range Interpretation Comments WHITE BLOOD CELL (test code = 11.1 K/mm3 4.5-11.0 H WBC) RED BLOOD CELL (test code = 4.54 M/mm3 3.80-5.20 N RBC) HEMOGLOBIN (test code = HGB) 14.2 gm/dL 11.5-15.5 N HEMATOCRIT (test code = HCT) 41.7 % 36.0-48.0 N MEAN CELL VOLUME (test code = 91.9 UM3 78.0-98.0 N MCV) MEAN CELL HGB (test code = MCH) 31.3 UUG 25.0-35.0 N MEAN CELL HGB CONCETRATION 34.1 gm/dL 29.0-35.5 N (test code = MCHC) RED CELL DISTRIBUTION WIDTH 12.6 % 11.5-15.0 N (test code = RDW) RED CELL DISTRIBUTION WIDTH SD 42.6 fL 34.8-50.2 N (test code = RDW-SD) PLATELET COUNT (test code = 266 K/mm3 150-400 N PLT) MEAN PLATELET VOLUME (test code 9.0 fl 7.4-10.4 N = MPV) NEUTROPHIL % (test code = NT%) 58.6 % 49.0-76.0 N IMMATURE GRANULOCYTE % (test 0.5 % 0.0-0.4 H code = IG%) LYMPHOCYTE % (test code = LY%) 29.3 % 23.0-38.0 N MONOCYTE % (test code = MO%) 9.2 % 1.0-10.0 N EOSINOPHIL % (test code = EO%) 1.9 % 1.0-5.0 N BASOPHIL % (test code = BA%) 0.5 % 0.0-1.0 N NUCLEATED RBC % (test code = 0.0 % 0.0-0.1 N NRBC%) NEUTROPHIL # (test code = NT#) 6.5 K/mm3 2.4-6.3 H IMMATURE GRANULOCYTE # (test 0.05 x10 3/uL 0.00-0.07 N code = IG#) LYMPHOCYTE # (test code = LY#) 3.3 K/mm3 1.2-4.0 N MONOCYTE # (test code = MO#) 1.0 K/mm3 0.0-0.6 H EOSINOPHIL # (test code = EO#) 0.2 K/MM3 0.0-0.7 N BASOPHIL # (test code = BA#) 0.1 K/mm3 0.0-0.2 N NUCLEATED RBC # (test code = 0.00 X10 3uL 0.00-0.01 N NRBC#) - CT HEAD/BRAIN W/O [id number] 19:04:00 [facility] 2000 Sex: F FAX: Erendira Maddox MD [phone] [place]: St: REG Name: YUSRA JANE [facility] : 2000 Age/S: 19/F [address] Unit: [id number] Loc: [address] Phys: [place] [address] Acct: [id number] Dis Date: Status: REG ER PHONE #: [phone] Exam Date: 04/25/2020 1850 FAX #: [phone] Reason: HEADACHE, BLURRY VISION L EYE EXAMS: CPT CODE: [id number] CT HEAD/BRAIN W/O CONT 00131 EXAM: - CT HEAD/BRAIN W/O CONT CLINICAL HISTORY: HEADACHE, BLURRY VISION L EYE TECHNIQUE: Axial noncontrast CT images through the head were obtained. This examination was performed according to our departmental dose optimization program, which includes automated exposure control, adjustment of the mA and/or kV according to patient size, and/or use of iterative reconstruction technique. COMPARISON: None available. LOCATION: H65 FINDINGS: There is nointracranial hemorrhage or extra-axial fluid collections. No mass or midline shift. Nohydrocephalus. The visualized paranasal sinuses and mastoid air cells are well ae rated. The globes are intact and symmetric in volume. The skull is intact. IMPRESSION: No acute intracranial process. If concern for acute pathology persists, further evaluation with MRI is recommended. at 1904 Reported and signed by: Luis Enrique Baltazar M.D. CC: Erendira Maddox MD Technologist: VIOLA Hewitt Dt/Tm: 04/25/2020 (1903) [email or web address] Orig Print D/T: S: 04/25/2020 (7 PAGE 1 Signed Report- CT ABD PELVIS W/[id number] 19:01:00 FAX: Lina Veras [phone] [place]: St: REG Name: YUSRA JANE : 2000 Age/S: 18/F [address] Unit: [id number] Loc: [place] [address] Phys: DuringLina Acct: [id number] Dis Date: Status: REG ER PHONE #: [phone] Exam Date: 02/16/2019 1822 FAX #: [phone] Reason: abdominal pain, difficult US r/o appy EXAMS: CPT CODE: [id number] CT ABD PELVIS W/CONT 34605 LOCATION: R16 EXAM: - CT ABD PELVIS W/CONT INDICATION: 18-year-old female with abdominal pain, difficult US r/o appy TECHNIQUE: Contrast - 59 mL Isovue-300 IV contrast was given. No oral contrast was given Portal venous phase - abdomen and pelvis No delayed phase images were obtained. Reconstructions - coronal and sagittal planes Automated exposure reduction (Auto mA/Smart mA) was utilized in compliance with ACR Image [employer] with DLP of 210 mGy-cm. COMPAR LILA: None FINDINGS: Thoracic: Included images of the lower chest demonstrate no abnormalities. Hepatobiliary: The liver is normal without focal lesion. The gallbladder is normal. No biliary dilation. Pancreas: Normal. Spleen: Normal. Adrenals: Normal. Genitourinary: The kidneys are normal. No evide nce of hydronephrosis. Evaluation of the bladder is limited, but no obvious bladder abnormality is present. Gastrointestinal: No bowel obstruction or perienteric inflammation. The appendix is not visualized. Vascular: No evidence of aneurysm or dissection. Lymphatics: No enlarged lymph nodes by CT size criteria. Bones/Soft Tissues: No acute osseous findings. No ventral hernias. PAGE 1 Signed Report (CONTINUED) FAX: Lina Felisha Reed [phone] [place]: St: REG -- Name: YUSRA JANE : 2000 Age/S: 18/F [address] Unit: [id number] Loc: [place] [address] Phys: RitoCourtneyLina W DO Acct: [id number] Dis Date: Status: REG ER PHONE #: [phone] Exam Date: 02/16/2019 1822 FAX #: [phone] Reason: abdominal pain, difficult US r/o appy EXAMS: CPT CODE: [id number] CT ABD PELVIS W/CONT 94013 <Continued> [place] toneum/Other: No extraluminal air. No extraluminal fluid. IMPRESSION: No acute inflammation in the abdomen or pelvis. The appendix is not visualized. However,there is no discrete pericecal inflammatory change to suggest acute appendicitis. at 1901 Reported and signed by: Marysol Mendoza CC: Lina Veras DO Technologist: Mary Lennon; STEPHAN LEAL Trnscrd Dt/Tm: 02/16/2019 (1900) [email or web address] Orig Print D/T: S: 02/16/2019 (5 PAGE 2 Signed ReportURINALYSIS [id number] 18:30:00 Test Item Value Reference Range Interpretation Comments UA COLOR (test code = Yellow Yellow COLU) UA APPEARANCE (test code Cloudy Clear A = APPU) UA GLUCOSE DIPSTICK (test Negative Negative code = DGLUU) UA BILIRUBIN DIPSTICK Negative Negative (test code = BILU) UA KETONE DIPSTICK (test Negative mg/dL Negative code = KETU) UA SPECIFIC GRAVITY (test 1.025 <1.030 code = SGU) UA BLOOD DIPSTICK (test Negative Negative code = ARTURO) UA PH DIPSTICK (test code 6.0 5.0-8.0 = ASHER) UA PROTEIN DIPSTICK (test NEGATIVE mg/dL Negative code = PROU) UA UROBILINOGEN DIPSTICK Negative mg/dL Negative (test code = URO) UA NITRITE DIPSTICK (test Negative Negative code = BEVERLEY) UA LEUKOCYTE ESTERASE 2+ Negative A DIPSTICK (test code = LEUU) UA WBC (test code = WBCU) 6-10 /HPF <4-5 A UA RBC (test code = RBCU) 0-3 /HPF <4-5 UA BACTERIA (test code = 1+ /HPF None-Rare A BACU) UA SQUAMOUS CELLS (test 16-25 (MODERATE) 0-5 (RARE) A code = SQU) /HPF UA CALCIUM OXALATE Moderate /HPF None CRYSTALS (test code = CAOXU) UR HCG [id number] 18:30:00 Test Item Value Reference Range Interpretation Comments UR HCG QUAL (test code = HCGQLU) NEGATIVE NEGATIVE - US PELVIC [id number] 17:49:00 FAX: Lina Veras [phone] [place]: St: REG Name: YUSRA JANE : 2000 Age/S: 18/F [address] Unit#: [id number] Loc: [place] [address] Phys: Lina Veras DO Acct: [id number] Dis Date: Status: REG ER PHONE #: [phone] Exam Date: 02/16/2019 1657 FAX #: [phone] Reason: abdominal pain, vomiting EXAMS: CPT CODE: [id number] US PELVIC COMPLETE 58095 EXAM: - US TRANSVAGINAL NON OB, - DUP AB/PEL/SC/LTD, - US PELVIC COMPLETE HISTORY: Right-sided pelvic pain Location code:C3 COMPARISON: 09/09/2018 TECHNIQUE: Transabdominal and endovaginal scans were performed. Spectral Doppler and color Doppler sonographic analysis of the adnexa was performed. FINDINGS: The uterus is normal size, measuring 6.8 x 3.2 x 4.5cm (length x AP x transverse dimensions). Endometrial stripe is normal thickness at 2mm. No myometrial masses are seen. The right ovary measures 2.7 x 2.2 x 3.0cm. The left ovary measures 2.3 x 2.4 x 2.3cm. Bilateral ovarian blood flow is documented by pulse wave Doppler. There is no adnexal mass or free fluid in the cul-de-sac. The appendix was not visualized. IMPRESSION: 1. Normal pelvic ultrasound. The appendix was not visualized and appendicitis is not excluded on the basis of this examination. at 5446 Reported and signed by: Amari Cruz MD CC: Lina Veras DO Technologist: Susan Iverson MS Trnscrd Date/Time/By: 02/16/2019 (0459) : By: [email or web address] PAGE 1 Signed Report FAX: Courtney Veraslamichelle Reed [phone] [place]: St: REG -- Name: YUSRA JANE [facility] : 2000 Age/S: 18/F [address] Unit #: [id number] Loc: [place] [address] Phys: Lina Veras Felisha KNIGHT Acct: [id number] Dis Date: Status: REG ER PHONE #: [phone] Exam Date: 02/16/2019 1657 FAX #: [phone] Reason: abdominal pain, vomiting EXAMS: CPT CODE: [id number] US PELVIC COMPLETE 20701 <Continued> Orig Print D/T: S: 02/16/2019 (4679) PAGE 2 Signed Report- DUP AB/PEL/SC/[id number] 17:49:00 FAX: Lina Veras Brianna [phone] [place]: St: REG Name: YUSRA JANE : 2000 Age/S: 18/F [address] Unit#: [id number] Loc: [place] [address] Phys: Lina Veras DO Acct: [id number] Dis Date: Status: REG ER PHONE #: [phone] Exam Date: 02/16/2019 1657 FAX #: [phone] Reason: See reason on US PELVIC NON OB COMPLETE EXAMS: CPT CODE: [id number] DUP AB/PEL/SC/LTD 50283 EXAM: - US TRANSVAGINAL NON OB, - DUP AB/PEL/SC/LTD, - US PELVIC COMPLETE HISTORY: Right-sided pelvic pain Location code:C3 COMPARISON: 09/09/2018 TECHNIQUE: Transabdominal and endovaginal scans were performed. Spectral Doppler and color Doppler sonographic analysis of the adnexa was performed. FINDINGS: The uterus is normal size, measuring 6.8 x 3.2 x 4.5cm (length x AP x transverse dimensions). Endometrial stripe is normal thickness at 2mm. No myometrial masses are seen. The right ovary measures 2.7 x 2.2 x 3.0cm. The left ovary measures 2.3 x 2.4 x 2.3cm. Bilateral ovarian blood flow is documented by pulse wave Doppler. There is no adnexal mass or free fluid in the cul-de-sac. The appendix was not visualized. IMPRESSION: 1. Normal pelvic ultrasound. The appendix was not visualized and appendicitis is not excluded on the basis of this examination. at 1749 Reported and signed by: Amari Cruz MD CC: Lina Veras DO Technologist: Susan Iverson RDMS Trnscrd Date/Time/By: 02/16/2019 (2020) : By: [email or web address] PAGE 1 Signed Report FAX: RitoLina W D [phone] [place]: St: REG -- Name: LUCINDAYUSRAFANTA [place] : 2000 Age/S: 18/F [address] Unit #: [id number] Loc: [place] [address] Phys: Lina Veras DO Acct: [id number] Dis Date: Status: REG ER PHONE #: [phone] Exam Date: 02/16/2019 1657 FAX #: [phone] Reason: See reasonon US PELVIC NON OB COMPLETE EXAMS: CPT CODE: [id number] DUP AB/PEL/SC/LTD 17928 <Continued> Orig Print D/T: S: 02/16/2019 (8995) PAGE 2 Signed Report- US TRANSVAGINAL NON [id number] 17:49:00 FAX: Lina Veras [phone] [place]: St: REG Name: LUCINDAYUSRAFANTA [place] : 2000 Age/S: 18/F [address] Unit#: [id number] Loc: [place] [address] Phys: Lina Veras DO Acct: [id number] Dis Date: Status: REG ER PHONE #: [phone] Exam Date: 02/16/2019 1657 FAX #: [phone] Reason: See reason on US PELVIC NON OB COMPLETE EXAMS: CPT CODE: [id number] [place] [address] EXAM: - US TRANSVAGINAL NON OB, - DUP AB/PEL/SC/LTD, - US PELVIC COMPLETE HISTORY: Right-sided pelvic pain Location code:C3 COMPARISON: 09/09/2018 TECHNIQUE: Transabdominal and endovaginal scans were performed. Spectral Doppler and color Doppler sonographic analysis of the adnexa was performed. FINDINGS: The uterus is normal size, measuring 6.8 x 3.2 x 4.5cm (length x AP x transverse dimensions). Endometrial stripe is normal thickness at 2mm. No myometrial masses are seen. The right ovary measures 2.7 x 2.2 x 3.0cm. The left ovary measures 2.3 x 2.4 x 2.3cm. Bilateral ovarian blood flow is documented by pulse wave Doppler. There is no adnexal mass or free fluid in the cul-de-sac. The appendix was not visualized. IMPRESSION: 1. Normal pelvic ultrasound. The appendix was not visualized and appendicitis is not excluded on the basis of this examination. at 6307 Reported and signed by: Amari Cruz MD CC: Linamichelle Veras Technologist: Susan Iverson RDMS; S#: [id number] Trnscrd Date/Time/By: 02/16/2019 (3195) : By: [email or web address] PAGE 1 Signed Report FAX: Lina Veras [phone] [place]: St: REG -- Name: YUSRA JANE : 2000 Age/S: 18/F [address] Unit #: [id number] Loc: [place] [address] Phys: Lina Veras DO Acct: [id number] Dis Date: Status: REG ER PHONE #: [phone] Exam Date: 02/16/2019 1650 FAX #: [phone] Reason: See reasonon US PELVIC NON OB COMPLETE EXAMS: CPT CODE: [id number] [place] [address] <Continued> Orig Print D/T: S: 02/16/2019 (8329) PAGE 2 Signed ReportURINALYSIS [id number] 17:08:00 Test Item Value Reference Range Interpretation Comments UA COLOR (test code = COLU) YELLOW UA APPEARANCE (test code = APPU) CLEAR UA GLUCOSE DIPSTICK (test code = MG/DL NEGATIVE DGLUU) UA BILIRUBIN DIPSTICK (test code = NEGATIVE BILU) UA KETONE DIPSTICK (test code = KETU) MG/DL NEGATIVE UA SPECIFIC GRAVITY (test code = SGU) 1.000-1.030 UA BLOOD DIPSTICK (test code = ARTURO) NEGATIVE UA PH DIPSTICK (test code = ASHER) 4.5-8.5 UA PROTEIN DIPSTICK (test code = PROU) MG/DL NEGATIVE UA UROBILINOGEN DIPSTICK (test code = EU/dL <=1.0 URO) UA NITRITE DIPSTICK (test code = BEVERLEY) NEGATIVE UA LEUKOCYTE ESTERASE DIPSTICK (test NEGATIVE code = LEUU) UA WBC (test code = WBCU) /HPF 0-3 UA RBC (test code = RBCU) /HPF 0-3 UA BACTERIA (test code = BACU) /HPF NEGATIVE UR HCG [id number] 17:08:00 Test Item Value Reference Range Interpretation Comments UR HCG QUAL (test code = HCGQLU) NEGATIVE NEGATIVE COMPREHENSIVE METABOLIC [id number] 16:35:00 Test Item Value Reference Range Interpretation Comments SODIUM (test code = 142 mmol/L 137-145 N NA) POTASSIUM (test code = 3.7 mmol/L 3.4-5.0 N K) CHLORIDE (test code = 104 mmol/L 98-107 N CL) CARBON DIOXIDE (test 27 mmol/L 22-30 N code = CO2) GLUCOSE (test code = 82 mg/dL 74-106 N GLU) BLOOD UREA NITROGEN 16 mg/dL 7-17 N (test code = BUN) CREATININE (test code 0.6 mg/dL 0.5-1.0 N = CREAT) TOTAL PROTEIN (test 8.5 g/dL 6.3-8.2 H code = PROT) ALBUMIN (test code = 5.0 g/dL 3.5-5.0 N ALB) CALCIUM (test code = 9.8 mg/dL 8.4-10.2 N CA) BILIRUBIN TOTAL (test 0.8 mg/dL 0.2-1.3 N code = BILT) BILIRUBIN CONJUGATED 0 mg/dL 0-0.3 N ~~~~~~~ ~~~~~~~~~~~~~~ (test code = BILCON) ~~~~~~~ ~~~~~~~~~~~~~~ ~~~~~~~~~~~~~~~ ~~~CON JUGATED BILIRUB IN IS THE REPLACEMENT ASSAY FOR DIRECTBILIRUBIN .~~~~~ ~~~~~~~~~~~~~~~ ~~~~~~ ~~~~~~~~~~~~~~~ ~~~~~~ ~~~~~~~~~~~~~ BILIRUBIN UNCONJUGATED 0.6 mg/dL 0-1.1 N (test code = BILUNC) SGOT/AST (test code = 20 U/L 15-46 N AST) SGPT/ALT (test code = 18 U/L 13-69 N ALT) ALKALINE PHOSPHATASE 61 U/L 38-126 N (test code = ALKP) [id number] 16:35:00 Test Item Value Reference Range Interpretation Comments AMYLASE (test code = MARY) 85 U/L 30-110 N [id number] 16:35:00 Test Item Value Reference Range Interpretation Comments LIPASE (test code = LIP) 86 U/L 23-300 N C REACTIVE [id number] 16:35:00 Test Item Value Reference Range Interpretation Comments C REACTIVE PROTEIN (test code = < 5.0 mg/L 0-9 N CRP) COMPREHENSIVE METABOLIC [id number] 16:11:00 Test Item Value Reference Range Interpretation Comments SODIUM (test code = 142 mmol/L 137-145 N NA) POTASSIUM (test code = 3.7 mmol/L 3.4-5.0 N K) CHLORIDE (test code = 104 mmol/L 98-107 N CL) CARBON DIOXIDE (test 27 mmol/L 22-30 N code = CO2) GLUCOSE (test code = 82 mg/dL 74-106 N GLU) BLOOD UREA NITROGEN 16 mg/dL 7-17 N (test code = BUN) CREATININE (test code 0.6 mg/dL 0.5-1.0 N = CREAT) TOTAL PROTEIN (test 8.5 g/dL 6.3-8.2 H code = PROT) ALBUMIN (test code = 5.0 g/dL 3.5-5.0 N ALB) CALCIUM (test code = 9.8 mg/dL 8.4-10.2 N CA) BILIRUBIN TOTAL (test 0.8 mg/dL 0.2-1.3 N code = BILT) BILIRUBIN CONJUGATED 0 mg/dL 0-0.3 N ~~~~~~~ ~~~~~~~~~~~~~~ (test code = BILCON) ~~~~~~~ ~~~~~~~~~~~~~~ ~~~~~~~~~~~~~~~ ~~~CON JUGATED BILIRUB IN IS THE REPLACEMENT ASSAY FOR DIRECTBILIRUBIN .~~~~~ ~~~~~~~~~~~~~~~ ~~~~~~ ~~~~~~~~~~~~~~~ ~~~~~~ ~~~~~~~~~~~~~ BILIRUBIN UNCONJUGATED 0.6 mg/dL 0-1.1 N (test code = BILUNC) SGOT/AST (test code = 20 U/L 15-46 N AST) SGPT/ALT (test code = 18 U/L 13-69 N ALT) ALKALINE PHOSPHATASE 61 U/L 38-126 N (test code = ALKP) [id number] 16:11:00 Test Item Value Reference Range Interpretation Comments AMYLASE (test code = MARY) 85 U/L 30-110 N [id number] 16:11:00 Test Item Value Reference Range Interpretation Comments LIPASE (test code = LIP) 86 U/L 23-300 N C REACTIVE [id number] 16:11:00 Test Item Value Reference Range Interpretation Comments C REACTIVE PROTEIN (test code = CRP) mg/L 0-9 CBC W/AUTO [id number] 15:51:00 Test Item Value Reference Range Interpretation Comments WHITE BLOOD CELL (test code = 8.6 x10 3/uL 5.0-12.0 N WBC) RED BLOOD CELL (test code = 4.72 x10 6/uL 4.20-5.40 N RBC) HEMOGLOBIN (test code = HGB) 14.6 g/dL 12.0-16.0 N HEMATOCRIT (test code = HCT) 42.1 % 36.0-46.0 N MEAN CELL VOLUME (test code = 89 fL 81-99 N MCV) MEAN CELL HGB (test code = MCH) 30.9 pg 27-31 N MEAN CELL HGB CONCENTRATION 34.7 g/dL 33-37 N (test code = MCHC) RED CELL DISTRIBUTION WIDTH 12.8 % 11.5-15.5 N (test code = RDW) PLATELET COUNT (test code = 290 x10 3/uL 130-400 N PLT) MEAN PLATELET VOLUME (test code 9.7 fL 9.4-16.4 N = MPV) NEUTROPHIL % (test code = NT%) 53.9 % 43-65 N IMMATURE GRANULOCYTE % (test 0.3 % 0.0-2.0 N code = IG%) LYMPHOCYTE % (test code = LY%) 35.3 % 20.5-45.5 N MONOCYTE % (test code = MO%) 8.5 % 5.5-11.7 N EOSINOPHIL % (test code = EO%) 1.7 % 0.9-2.9 N BASOPHIL % (test code = BA%) 0.3 % 0.2-1.0 N NUCLEATED RBC % (test code = 0.0 % 0-1.0 N NRBC%) NEUTROPHIL # (test code = NT#) 4.62 x10 3/uL 2.2-4.8 N IMMATURE GRANULOCYTE # (test 0.03 x10 3/uL 0-0.03 N code = IG#) LYMPHOCYTE # (test code = LY#) 3.03 x10 3/uL 1.3-2.9 H MONOCYTE # (test code = MO#) 0.73 x10 3/uL 0.3-0.8 N EOSINOPHIL # (test code = EO#) 0.15 x10 3/uL 0.0-0.2 N BASOPHIL # (test code = BA#) 0.03 x10 3/uL 0.0-0.1 N DRUGS OF ABUSE [id number] 22:13:00 Test Item Value Reference Range Interpretation Comments TRICYCLICS QL SQN (test NEGATIVE NEG TEST PERFORMED code = TRIUR) MANUALLY USING SYVA RAPIDTEST TCA.C UTOFF >/= 1000 NG/ML A Positive drug s creen result provides only a "PreliminaryPos itive" test result.If a confirmation of positive result is necessary, a morespecific confirmatory te st must be ordered by the physician. Drug screens are per formed for medical (i. e. treatment)purpo ses only. Unconfirm ed screening resul ts must not beused for non-medical pur poses (e.g employment testing). UR COCAINE (test code = NEGATIVE NEGATIVE CUTO FF >/= 300 NG/ML COCAU) UR THC CANABINOIDS QL NEGATIVE NEGATIVE CUTOFF >/= 20 NG/ML SQN (test code = CANU) UR AMPHETAMINE QL SQN POSITIVE NEGATIVE A CUTOFF >/= 500 NG/ML (test code = AMPHU) UR BARBITURATE QUAL NEGATIVE NEGATIVE CUTOFF >/= 200 NG/ML (test code = BARBQLU) UR BENZODIAZEPINE (test NEGATIVE NEGATIVE CUTO FF >/= 200 NG/ML code = BENZU) UR OPIATES QUAL (test NEGATIVE NEGATIVE CUTOFF >/= 2000 NG/ML code = OPIAQLU) UR PHENCYCLIDINE (PCP) NEGATIVE NEGATIVE CUTOF F >/= 25 NG/ML (test code = PHENCU) DRUGS OF ABUSE [id number] 21:56:00 Test Item Value Reference Range Interpretation Comments TRICYCLICS QL SQN (test NEGATIVE NEG TEST PERFORMED code = TRIUR) MANUALLY USING SYVA RAPIDTEST TCA.C UTOFF >/= 1000 NG/ML A Positive drug s creen result provides only a "PreliminaryPos itive" test result.If a confirmation of positive result is necessary, a morespecific confirmatory te st must be ordered by the physician. Drug screens are per formed for medical (i. e. treatment)purpo ses only. Unconfirm ed screening resul ts must not beused for non-medical pur poses (e.g employment testing). UR COCAINE (test code = NEGATIVE COCAU) UR THC CANABINOIDS QL NEGATIVE SQN (test code = CANU) UR AMPHETAMINE QL SQN NEGATIVE (test code = AMPHU) UR BARBITURATE QUAL NEGATIVE (test code = BARBQLU) UR BENZODIAZEPINE (test NEGATIVE code = BENZU) UR OPIATES QUAL (test NEGATIVE code = OPIAQLU) UR PHENCYCLIDINE (PCP) NEGATIVE (test code = PHENCU) UR HCG [id number] 21:51:00 Test Item Value Reference Range Interpretation Comments UR HCG QUAL (test code = HCGQLU) NEGATIVE NEGATIVE COMPREHENSIVE METABOLIC [id number] 21:44:00 Test Item Value Reference Range Interpretation Comments SODIUM (test code = 143 mmol/L 137-145 N NA) POTASSIUM (test code = 3.4 mmol/L 3.4-5.0 N K) CHLORIDE (test code = 110 mmol/L 98-107 H CL) CARBON DIOXIDE (test 22 mmol/L 22-30 N code = CO2) GLUCOSE (test code = 117 mg/dL 74-106 H GLU) BLOOD UREA NITROGEN 14 mg/dL 7-17 N (test code = BUN) CREATININE (test code 0.7 mg/dL 0.5-1.0 N = CREAT) TOTAL PROTEIN (test 7.2 g/dL 6.3-8.2 N code = PROT) ALBUMIN (test code = 4.4 g/dL 3.5-5.0 N ALB) CALCIUM (test code = 9.2 mg/dL 8.4-10.2 N CA) BILIRUBIN TOTAL (test 0.3 mg/dL 0.2-1.3 N code = BILT) BILIRUBIN CONJUGATED 0 mg/dL 0-0.3 N ~~~~~~~ ~~~~~~~~~~~~~~ (test code = BILCON) ~~~~~~~ ~~~~~~~~~~~~~~ ~~~~~~~~~~~~~~~ ~~~CON JUGATED BILIRUB IN IS THE REPLACEMENT ASSAY FOR DIRECTBILIRUBIN .~~~~~ ~~~~~~~~~~~~~~~ ~~~~~~ ~~~~~~~~~~~~~~~ ~~~~~~ ~~~~~~~~~~~~~ BILIRUBIN UNCONJUGATED 0 mg/dL 0-1.1 N (test code = BILUNC) SGOT/AST (test code = 18 U/L 15-46 N AST) SGPT/ALT (test code = 17 U/L 13-69 N ALT) ALKALINE PHOSPHATASE 59 U/L 38-126 N (test code = ALKP) [id number] 21:44:00 Test Item Value Reference Range Interpretation Comments ACETAMINOPHEN (test code = ACET) <10 ug/mL 10-30 L [id number] 21:44:00 Test Item Value Reference Range Interpretation Comments SALICYLATE (test code < 1.0 mg/dL Negati ve <2.0 = MC) mg/dLTherapeuti c Range <20 mg/dL [id number] 21:44:00 Test Item Value Reference Range Interpretation Comments ALCOHOL (test code = < 10 mg/dL <10 ALC) ~~~~~~~~~~~~~~~ ~~~~~~~ ~~~~~~~~~~~~~~~ ~~~~~~~ ~~~~~~ RESU LTS ARE TO BE USED FOR MEDICAL PURPOSES ONLY.F OR LEGAL PURPOSES THE SPECIMEN MUST B E COLLECTED BY A CHAINOF CUSTODY. LEGAL TESTING IS NOT PERFORME D BY THIS FACILITY. ~~~~~~~~~~~~~~~ ~~~~~~~ ~~~~~~~~~~~~~~~ ~~~~~~~ ~~~~~~ [id number] 21:43:00 Test Item Value Reference Range Interpretation Comments MAGNESIUM (test code = MAG) 1.9 mg/dL 1.6-2.3 N CBC W/AUTO [id number] 21:28:00 Test Item Value Reference Range Interpretation Comments WHITE BLOOD CELL (test code = 11.2 x10 3/uL 5.0-12.0 N WBC) RED BLOOD CELL (test code = 4.09 x10 6/uL 4.20-5.40 L RBC) HEMOGLOBIN (test code = HGB) 12.7 g/dL 12.0-16.0 N HEMATOCRIT (test code = HCT) 37.3 % 36.0-46.0 N MEAN CELL VOLUME (test code = 91 fL 81-99 N MCV) MEAN CELL HGB (test code = MCH) 31.1 pg 27-31 H MEAN CELL HGB CONCENTRATION 34.0 g/dL 33-37 N (test code = MCHC) RED CELL DISTRIBUTION WIDTH 12.2 % 11.5-15.5 N (test code = RDW) PLATELET COUNT (test code = 247 x10 3/uL 130-400 N PLT) MEAN PLATELET VOLUME (test code 9.0 fL 9.4-16.4 L = MPV) NEUTROPHIL % (test code = NT%) 72.4 % 43-65 H IMMATURE GRANULOCYTE % (test 0.4 % 0.0-2.0 N code = IG%) LYMPHOCYTE % (test code = LY%) 16.9 % 20.5-45.5 L MONOCYTE % (test code = MO%) 9.0 % 5.5-11.7 N EOSINOPHIL % (test code = EO%) 1.1 % 0.9-2.9 N BASOPHIL % (test code = BA%) 0.2 % 0.2-1.0 N NUCLEATED RBC % (test code = 0.0 % 0-1.0 N NRBC%) NEUTROPHIL # (test code = NT#) 8.08 x10 3/uL 2.2-4.8 H IMMATURE GRANULOCYTE # (test 0.05 x10 3/uL 0-0.03 H code = IG#) LYMPHOCYTE # (test code = LY#) 1.88 x10 3/uL 1.3-2.9 N MONOCYTE # (test code = MO#) 1.00 x10 3/uL 0.3-0.8 H EOSINOPHIL # (test code = EO#) 0.12 x10 3/uL 0.0-0.2 N BASOPHIL # (test code = BA#) 0.02 x10 3/uL 0.0-0.1 N - CT ABD PELVIS [id number] 23:19:00 FAX: Alvin Daley MD [place]: St: REG Name: YUSRA JANE [facility] : 2000 Age/S: 18/F [address] Unit: [id number] Loc: [place] [address] Phys: Alvin Daley MD Acct: [id number] Dis Date: Status: REG ER PHONE #: [phone] Exam Date: 09/09/2018 2309 FAX #: [phone] Reason: GROSS HEMATURIA EXAMS: CPT CODE: [id number] CT ABD PELVIS W/CONT 39345 C3 TIME OF STUDY: 09/09/2018 10:33 PM REASON FOR EXAM: GROSS HEMATURIA COMPARISON: None. TECHNIQUE: Helical post contrast enhanced images were obtained through the abdomen and pelvis. Sagittal and coronal reformats were obtained and reviewed. One or more of the following radiation dose reduction techniques was used: automated exposure control, adjustment of mA and/or KV according to patient size, and/or utilization of iterative reconstruction technique. FINDINGS: CT Abdomen: The included lung bases are clear. Dome of the liver is not completely included in the [id number]. No radiopaque calculi are seen in the gallbladder. The liver, pancreas, kidneys, adrenal glands and spleen all have normal appearance. There is no mesenteric or retroperitoneal adenopathy. The bowel loops are nondi lated. A normal appendix visualized. However, there is no inflammation in the right lower quadrant. There is no free fluid or free air. The osseous structures are age-appropriate. CT Pelvis: The ureters are grossly normal. Mild circumferential thickening of the bladder is noted. There is no free air, free fluid, loculated collection or adenopathy in the pelvis. The osseous and soft tissue structures are age appropriate. IMPRESSION: 1. Mild circumferential thickening of the bladder can be seen with cystitis. Correlate with urinalysis. No obstructive ureteral calculi and no hydronephrosis seen. at 2319 Reported and signed by: Richard Loving MD PAGE 1 Signed Report (CONTINUED) FAX: Alvin Daley MD [place]: St: REG Name: YUSRA JANE : 2000 Age/S: 18/F [address] Unit: [id number] Loc: [place] [address] Phys: Alvin Daley MD Acct: [id number] Dis Date: Status: REG ER PHONE #: [phone] Exam Date: 09/09/2018 230 FAX #: [phone] Reason: GROSS HEMATURIA EXAMS: CPT CODE: [id number] CT ABD PELVIS W/CONT [id number] <Continued> CC: Alvin Daley MD Technologist: Archana Mckeon Dt/Tm: 09/09/2018 (6022) [email or web address] Orig Print D/T: S: 09/09/2018 (8658 PAGE 2 Signed ReportCOMPREHENSIVE METABOLIC PANEL 2018-09-09 22:13:00 Test Item Value Reference Range Interpretation Comments SODIUM (test code = 141 mmol/L 137-145 N NA) POTASSIUM (test code = 4.0 mmol/L 3.4-5.0 N K) CHLORIDE (test code = 105 mmol/L 98-107 N CL) CARBON DIOXIDE (test 25 mmol/L 22-30 N code = CO2) GLUCOSE (test code = 83 mg/dL 74-106 N GLU) BLOOD UREA NITROGEN 21 mg/dL 7-17 H (test code = BUN) CREATININE (test code 0.6 mg/dL 0.5-1.0 N = CREAT) TOTAL PROTEIN (test 7.5 g/dL 6.3-8.2 N code = PROT) ALBUMIN (test code = 4.5 g/dL 3.5-5.0 N ALB) CALCIUM (test code = 9.3 mg/dL 8.4-10.2 N CA) BILIRUBIN TOTAL (test 0.3 mg/dL 0.2-1.3 N code = BILT) BILIRUBIN CONJUGATED 0 mg/dL 0-0.3 N ~~~~~~~ ~~~~~~~~~~~~~~ (test code = BILCON) ~~~~~~~ ~~~~~~~~~~~~~~ ~~~~~~~~~~~~~~~ ~~~CON JUGATED BILIRUB IN IS THE REPLACEMENT ASSAY FOR DIRECTBILIRUBIN .~~~~~ ~~~~~~~~~~~~~~~ ~~~~~~ ~~~~~~~~~~~~~~~ ~~~~~~ ~~~~~~~~~~~~~ BILIRUBIN UNCONJUGATED 0.3 mg/dL 0-1.1 N (test code = BILUNC) SGOT/AST (test code = 19 U/L 15-46 N AST) SGPT/ALT (test code = 27 U/L 13-69 N ALT) ALKALINE PHOSPHATASE 70 U/L 38-126 N (test code = ALKP) URINALYSIS [id number] 22:12:00 Test Item Value Reference Range Interpretation Comments UA COLOR (test code = GROSS BLOOD YELLOW A COLU) UA APPEARANCE (test CLOUDY CLEAR A code = APPU) UA GLUCOSE DIPSTICK COLOR INTERFERENCE NEGATIVE (test code = DGLUU) MG/DL UA BILIRUBIN DIPSTICK COLOR INTERFERENCE NEGATIVE (test code = BILU) UA KETONE DIPSTICK COLOR INTERFERENCE NEGATIVE (test code = KETU) MG/DL UA SPECIFIC GRAVITY COLOR INTERFERENCE 1.000-1.030 (test code = SGU) UA BLOOD DIPSTICK (test COLOR INTERFERENCE NEGATIVE code = ARTURO) UA PH DIPSTICK (test COLOR INTERFERENCE 4.5-8.5 code = ASHER) UA PROTEIN DIPSTICK COLOR INTERFERENCE NEGATIVE (test code = PROU) MG/DL UA UROBILINOGEN COLOR INTERFERENCE <=1.0 DIPSTICK (test code = EU/dL URO) UA NITRITE DIPSTICK COLOR INTERFERENCE NEGATIVE (test code = BEVERLEY) UA LEUKOCYTE ESTERASE COLOR INTERFERENCE NEGATIVE DIPSTICK (test code = LEUU) UA WBC (test code = TNTC /HPF 0-3 A WBCU) UA RBC (test code = TNTC /HPF 0-3 A RBCU) UA BACTERIA (test code Rare /HPF NEGATIVE = BACU) UR HCG [id number] 22:09:00 Test Item Value Reference Range Interpretation Comments UR HCG QUAL (test code = HCGQLU) NEGATIVE NEGATIVE URINALYSIS [id number] 22:08:00 Test Item Value Reference Range Interpretation Comments UA COLOR (test code = GROSS BLOOD YELLOW A COLU) UA APPEARANCE (test CLOUDY CLEAR A code = APPU) UA GLUCOSE DIPSTICK COLOR INTERFERENCE NEGATIVE (test code = DGLUU) MG/DL UA BILIRUBIN DIPSTICK COLOR INTERFERENCE NEGATIVE (test code = BILU) UA KETONE DIPSTICK COLOR INTERFERENCE NEGATIVE (test code = KETU) MG/DL UA SPECIFIC GRAVITY COLOR INTERFERENCE 1.000-1.030 (test code = SGU) UA BLOOD DIPSTICK (test COLOR INTERFERENCE NEGATIVE code = ARTURO) UA PH DIPSTICK (test COLOR INTERFERENCE 4.5-8.5 code = ASHER) UA PROTEIN DIPSTICK COLOR INTERFERENCE NEGATIVE (test code = PROU) MG/DL UA UROBILINOGEN COLOR INTERFERENCE <=1.0 DIPSTICK (test code = EU/dL URO) UA NITRITE DIPSTICK COLOR INTERFERENCE NEGATIVE (test code = BEVERLEY) UA LEUKOCYTE ESTERASE COLOR INTERFERENCE NEGATIVE DIPSTICK (test code = LEUU) UA WBC (test code = /HPF 0-3 WBCU) UA RBC (test code = /HPF 0-3 RBCU) UA BACTERIA (test code /HPF NEGATIVE = BACU) CBC W/AUTO [id number] 22:01:00 Test Item Value Reference Range Interpretation Comments WHITE BLOOD CELL (test code = 15.3 x10 3/uL 5.0-12.0 H WBC) RED BLOOD CELL (test code = 3.75 x10 6/uL 4.20-5.40 L RBC) HEMOGLOBIN (test code = HGB) 11.5 g/dL 12.0-16.0 L HEMATOCRIT (test code = HCT) 34.1 % 36.0-46.0 L MEAN CELL VOLUME (test code = 91 fL 81-99 N MCV) MEAN CELL HGB (test code = 30.7 pg 27-31 N MCH) MEAN CELL HGB CONCENTRATION 33.7 g/dL 33-37 N (test code = MCHC) RED CELL DISTRIBUTION WIDTH 12.3 % 11.5-15.5 N (test code = RDW) PLATELET COUNT (test code = 273 x10 3/uL 130-400 N PLT) MEAN PLATELET VOLUME (test 9.3 fL 9.4-16.4 L code = MPV) NEUTROPHIL % (test code = NT%) 73.1 % 43-65 H IMMATURE GRANULOCYTE % (test 0.5 % 0.0-2.0 N code = IG%) LYMPHOCYTE % (test code = LY%) 17.5 % 20.5-45.5 L MONOCYTE % (test code = MO%) 7.9 % 5.5-11.7 N EOSINOPHIL % (test code = EO%) 0.8 % 0.9-2.9 L BASOPHIL % (test code = BA%) 0.2 % 0.2-1.0 N NUCLEATED RBC % (test code = 0.0 % 0-1.0 N NRBC%) NEUTROPHIL # (test code = NT#) 11.22 x10 3/uL 2.2-4.8 H IMMATURE GRANULOCYTE # (test 0.08 x10 3/uL 0-0.03 H code = IG#) LYMPHOCYTE # (test code = LY#) 2.68 x10 3/uL 1.3-2.9 N MONOCYTE # (test code = MO#) 1.21 x10 3/uL 0.3-0.8 H EOSINOPHIL # (test code = EO#) 0.12 x10 3/uL 0.0-0.2 N BASOPHIL # (test code = BA#) 0.03 x10 3/uL 0.0-0.1 N
[2021-08-16] MEDS ORDERED: KETOROLAC 30 MG/ML INJ ONE (13:13)
--- NOTE | 2021-08-16 13:58 | RAD REPORT ---
EXAM DESCRIPTION: RAD - Knee Left 3 View - 08/16/2021 1:45 pm CLINICAL HISTORY: Left knee pain status post injury FINDINGS: No fracture or dislocation is seen.
--- NOTE | 2021-08-16 14:37 | EDPHYS ---
Physician Documentation [facility] Name: Mar Bowles Age: 21 yrs Sex: Female : 2000 Arrival Date: 08/16/2021 Time: 12:26 Bed 18 Private MD: ED Physician Parth Avila HPI: 08/16 13:00 This 21 yrs old Female presents to ER via Wheelchair with complaints of Knee Injury. pm1 13:00 The patient presents with pain, that is acute. The complaints affect the medial aspect pm1 of left knee and left knee. Context: The problem was sustained outdoors, resulted from Patient ran into another person last night with resulting left knee pain, the patient is not able to bear weight. 13:00 Onset: The symptoms/episode began/occurred last night. Modifying factors: The symptoms pm1 are alleviated by remaining still, the symptoms are aggravated by movement, weight bearing, bending knee. Associated signs and symptoms: Pertinent negatives calf tenderness, fever, numbness, tingling. Treatment prior to arrival includes: no previous treatment. Severity of symptoms: in the emergency department the symptoms are unchanged. The patient has not experienced similar symptoms in the past. The patient has not recently seen a physician. DRYERMAN/WOMAN: 12:52 LMP 08/06/2021 kd3 Historical: - Allergies: 12:38 Morphine; ll1 12:38 SUCCINYLCHOLINE; ll1 - PMHx: 12:38 None; ll1 - PSHx: 12:38 arm SX; ll1 - Immunization history:: Client reports having NOT received the Covid vaccine. - Social history:: Smoking status: Patient reports the use of cigarette tobacco products, smokes one pack cigarettes per day. ROS: 13:00 Constitutional: Negative for fever, chills, and weight loss, Cardiovascular: Negative pm1 for chest pain, palpitations, and edema, Respiratory: Negative for shortness of breath, cough, wheezing, and pleuritic chest pain. 13:00 Neuro: Negative for headache, weakness, numbness, tingling, and seizure. 13:00 MS/extremity: Positive for pain, swelling, tenderness, of the left knee. 13:00 Skin: Positive for abrasion(s), of the right knee. 13:00 All other systems are negative. Exam: 13:00 Constitutional: This is a well developed, well nourished patient who is awake, alert, pm1 and in no acute distress. Head/Face: Normocephalic, atraumatic. 13:00 Cardiovascular: Exam negative for acute changes, Rate: normal, Rhythm: regular, Pulses: no pulse deficits are appreciated. 13:00 Respiratory: Exam negative for acute changes, respiratory distress, shortness of breath. 13:00 Musculoskeletal/extremity: Extremities: grossly normal except: noted in the medial aspect of left knee: ecchymosis, swelling, tenderness, There is no evidence of deformity. 13:00 Skin: Appearance: normal except for affected area, injury, abrasion(s), small abrasion noted, of the right knee. 13:00 Neuro: Exam negative for acute changes, Orientation: is normal, Mentation: is normal, Motor: is normal, moves all fours. Vital Signs: 12:39 BP 131 / 78; Pulse 97; Resp 17; Temp 98.5(O); Pulse Ox 98% ; Weight 68.04 kg; Height 5 ll1 ft. 4 in. (162.56 cm); Pain 8/10; 12:54 BP 116 / 60; Pulse 75; Resp 16; Pulse Ox 100% ; Pain 6/10; kd3 15:23 BP 115 / 53; Pulse 71; Resp 16; Pulse Ox 100% on R/A; kd3 12:39 Body Mass Index 25.75 (68.04 kg, 162.56 cm) ll1 MDM: 12:54 Patient medically screened. pm1 14:36 Data reviewed: vital signs. Data interpreted: Pulse oximetry: on room air is 100 %. pm1 Interpretation: normal. Counseling: I had a detailed discussion with the patient and/or guardian regarding: the historical points, exam findings, and any diagnostic results supporting the discharge/admit diagnosis, radiology results, the need for outpatient follow up, to return to the emergency department if symptoms worsen or persist or if there are any questions or concerns that arise at home. 08/16 13:00 Order name: Knee Left 3 View XRAY; Complete Time: 14:36 pm1 08/16 13:00 Order name: Knee Immobilizer; Complete Time: 14:38 pm1 08/16 13:00 Order name: Crutches; Complete Time: 14:38 pm1 08/16 13:17 Order name: IV Saline Lock; Complete Time: 13:28 kd3 Administered Medications: 13:16 CANCELLED (Physician Discretion): Ketorolac 60 mg IM once kd3 13:28 Drug: Ketorolac 30 mg Route: IVP; Site: right antecubital; kd3 14:48 Drug: morphine 2 mg Route: IVP; Site: right antecubital; kd3 14:50 Drug: Zofran (Ondansetron) 4 mg Route: IVP; Site: right antecubital; kd3 Disposition Summary: 08/16/21 14:37 Discharge Ordered Location: Home pm1 Problem: new pm1 Symptoms: have improved pm1 Condition: Stable pm1 Diagnosis - Unspecified internal derangement of left knee pm1 - Pain in left knee pm1 Followup: pm1 - With: Emergency Department - When: As needed - Reason: Worsening of condition Followup: pm1 - With: Private Physician - When: 2 - 3 days - Reason: Recheck today's complaints, Continuance of care, Re-evaluation by your physician Discharge Instructions: - Discharge Summary Sheet pm1 - Crutch Use, Adult pm1 - How to Use a Knee Immobilizer pm1 - Acute Knee Pain, Adult pm1 Forms: - Medication Reconciliation Form pm1 - Thank You Letter pm1 - Antibiotic Education pm1 - Prescription Opioid Use pm1 Prescriptions: - Diclofenac Sodium 75 mg Oral tablet,delayed release (DR/EC) - take 1 tablet by ORAL route 2 times per day As needed; 30 tablet; Refills: 0, pm1 Product Selection Permitted Addendum: 08/19/2021 23:11 Co-signature as Attending Physician, Parth Avila MD I agree with the assessment and r n plan of care. Attestation: The patient's history, exam findings, diagnostics, and a summary of any interventions or procedures was reviewed in detail with Chilo Seaman NP. Signatures: Dispatcher [employer] EDMS Parth Avila MD MD rn Marinas, Patrick, NP CLAM GROWER pm1 Rut Paredes RN RN ll1 Lakesha Candelario RN RN kd3 Corrections: (The following items were deleted from the chart) 08/16 13:16 13:02 Ketorolac 60 mg IM once ordered. pm1 kd3 13:16 13:13 Ketorolac 60 mg IM once given. kd3 kd3 13:16 13:16 Ketorolac 60 mg IM once ordered. kd3 kd3
--- NOTE | 2021-08-16 14:37 | ER ---
Nurse's Notes [facility] Name: Mar Bowles Age: 21 yrs Sex: Female : 2000 Arrival Date: 08/16/2021 Time: 12:26 Bed 18 Private MD: Diagnosis: Unspecified internal derangement of left knee;Pain in left knee Presentation: 08/16 12:39 Chief complaint: Patient states: L knee pain s/p fall and hitting it on another person ll1 while playing hide and seek last night. Coronavirus screen: Vaccine status: Patient reports being unvaccinated. Client denies travel out of the [place] in the last 14 days. At this time, the client does not indicate any symptoms associated with coronavirus-19. Ebola Screen: Patient denies travel to an Ebola-affected area in the 21 days before illness onset. Initial Sepsis Screen: Does the patient meet any 2 criteria? No. Patient's initial sepsis screen is negative. Does the patient have a suspected source of infection? Yes: Bone or joint infection. Risk Assessment: Do you want to hurt yourself or someone else? Patient reports no desire to harm self or others. Onset of symptoms was August 15, 2021. 12:39 Method Of Arrival: Wheelchair ll1 12:39 Acuity: SJ 4 ll1 Triage Assessment: 12:41 General: Appears uncomfortable, Behavior is calm, cooperative, appropriate for age. ll1 Pain: Complains of pain in L knee Quality of pain is described as aching, Aggravated by increased activity. Musculoskeletal: Reports pain in L knee. Injury Description: Bruise. CLINICAL DATA SPECIALIST: 12:52 LMP 08/06/2021 kd3 Historical: - Allergies: 12:38 Morphine; ll1 12:38 SUCCINYLCHOLINE; ll1 - PMHx: 12:38 None; ll1 - PSHx: 12:38 arm SX; ll1 - Immunization history:: Client reports having NOT received the Covid vaccine. - Social history:: Smoking status: Patient reports the use of cigarette tobacco products, smokes one pack cigarettes per day. Screenin:51 Abuse screen: Denies threats or abuse. Denies injuries from another. Nutritional kd3 screening: No deficits noted. Tuberculosis screening: No symptoms or risk factors identified. Fall Risk None identified. Assessment: 12:49 General: Appears in no apparent distress. Behavior is calm, cooperative, appropriate kd3 for age. Pain: Complains of pain in medial aspect of left knee and left knee Pain currently is 4 out of 10 on a pain scale. Neuro: No deficits noted. Cardiovascular: No deficits noted. Respiratory: No deficits noted. GI: No deficits noted. : No deficits noted. EENT: No deficits noted. Derm: No deficits noted. Injury Description: Abrasion sustained to right knee. Vital Signs: 12:39 BP 131 / 78; Pulse 97; Resp 17; Temp 98.5(O); Pulse Ox 98% ; Weight 68.04 kg; Height 5 ll1 ft. 4 in. (162.56 cm); Pain 8/10; 12:54 BP 116 / 60; Pulse 75; Resp 16; Pulse Ox 100% ; Pain 6/10; kd3 15:23 BP 115 / 53; Pulse 71; Resp 16; Pulse Ox 100% on R/A; kd3 12:39 Body Mass Index 25.75 (68.04 kg, 162.56 cm) ll1 ED Course: 12:26 Patient arrived in ED. as 12:31 Arm band placed on Patient placed in an exam room, on a stretcher. ll1 12:32 Chilo Seaman NP is PHCP. pm1 12:32 Parth Avila MD is Attending Physician. pm1 12:41 Triage completed. ll1 12:41 Lakesha Candelario RN is Primary Nurse. kd3 12:51 Patient has correct armband on for positive identification. Bed in low position. Call kd3 light in reach. Side rails up X 1. 13:29 Inserted saline lock: 22 gauge in right antecubital area, using aseptic technique. kd3 13:45 Knee Left 3 View XRAY In Process Unspecified. EDMS 15:22 No provider procedures requiring assistance completed. IV discontinued, intact, kd3 bleeding controlled, No redness/swelling at site. Pressure dressing applied. Administered Medications: 13:16 CANCELLED (Physician Discretion): Ketorolac 60 mg IM once kd3 13:28 Drug: Ketorolac 30 mg Route: IVP; Site: right antecubital; kd3 14:48 Drug: morphine 2 mg Route: IVP; Site: right antecubital; kd3 14:50 Drug: Zofran (Ondansetron) 4 mg Route: IVP; Site: right antecubital; kd3 Outcome: 14:37 Discharge ordered by MD. pm1 15:22 Discharged to home ambulatory, with crutches. kd3 15:22 Condition: stable 15:22 Discharge instructions given to patient, Instructed on discharge instructions, follow up and referral plans. medication usage, Demonstrated understanding of instructions, follow-up care, medications, Prescriptions given X 1. 15:24 Patient left the ED. kd3 Signatures: Dispatcher [employer] EDGiovanna Hamilton Patrick, PIPELINE DISPATCH OPERATOR PIPELINE DISPATCH OPERATOR pm1 Rut Paredes RN RN ll1 Lakesha Candelario RN RN kd3 Corrections: (The following items were deleted from the chart) 13:16 13:13 Ketorolac 60 mg IM in Ventrogluteal RIGHT kd3 kd3
[2021-08-16] MEDS ORDERED: MORPHINE 2 MG/ML SYR ONE (14:43)
[2021-08-16] MEDS ORDERED: ONDANSETRON 4 MG/2 ML VIAL ONE (14:43)
[2021-08-16 15:46] VITALS: TEMP 98.5
[2021-08-16 15:48] VITALS: O2SAT 100
[2021-08-16 15:49] VITALS: BP 115/53
== END 2021-08-16 15:24 | disposition home or self-care (01) ==
LOC: ER 12:25
DX: M23.92 Unspecified internal derangement of left knee (principal); W51.XXXA Accidental striking against or bumped into by another person, initial encounter; Y92.89 Other specified places as the place of occurrence of the external cause; F17.210 Nicotine dependence, cigarettes, uncomplicated; Z88.5 Allergy status to narcotic agent; Z88.8 Allergy status to other drugs, medicaments and biological substances
CPT/HCPCS: 96374; 96375; 99284; J2270; J2405